=== PATIENT | female | born 1995 | race Caucasian/White ===

== ENCOUNTER 2019-04-30 19:11 | Inpatient (IN) ==
[2019-04-30] MEDS ORDERED: *HR* LORazepam 2 MG/ML VIAL IM PRN (21:43)
[2019-04-30] MEDS ORDERED: Haloperidol Lactate 5 MG/ML VIAL IM PRN (21:43)
[2019-04-30] MEDS ORDERED: *HR* LORazepam 1 MG TABLET PO PRN (21:43)
[2019-04-30] MEDS ORDERED: Acetaminophen 325 MG TABLET PO PRN (21:43)
[2019-04-30] MEDS ORDERED: haloperidoL 5 MG TABLET PO PRN (21:43)
[2019-04-30] MEDS ORDERED: MOM Conc 10 ML UD.LIQ PO PRN (21:43)
[2019-04-30] MEDS ORDERED: Mag Hydrox/Al Hydrox/Simeth 30 ML UDC PO PRN (21:43)
[2019-04-30] MEDS: hydrOXYzine pamoate 25 MG CAPSULE PO PRN (23:23)
[2019-04-30] MEDS: traZODone 50 MG TABLET PO PRN (23:24)
[2019-05-01] MEDS: BuPROPion XL (24 HR) 150 MG TABLET PO SCH (11:22)
[2019-05-01] MEDS: hydrOXYzine pamoate 25 MG CAPSULE PO PRN (20:42)
[2019-05-01] MEDS: traZODone 50 MG TABLET PO PRN (20:43)
[2019-05-01] MEDS ORDERED: Venlafaxine XR (24 HR) 75 MG CAP.ER.24H PO SCH (21:00)
[2019-05-01] MEDS ORDERED: ARIPiprazole 10 MG TABLET PO SCH (21:00)
[2019-05-02] MEDS: BuPROPion XL (24 HR) 150 MG TABLET PO SCH (08:30)
[2019-05-02 09:38] VITALS: BP 126/79
== END 2019-05-02 11:10 | disposition home or self-care (01) | DRG 885 ==
LOC: EMEROOARM 19:11 → 1ANU 21:39
PROVIDERS: ADMIT Psychiatry & Neurology Psychiatry; ATTEND Psychiatry & Neurology Psychiatry

== ENCOUNTER 2021-06-10 15:45 | Inpatient (IN) ==
[2021-06-10 16:31] LABS: Basophils # 0.1 K/mcL (0.0-0.2); Basophils % 0.9 %; Eosinophils # 0.3 K/mcL (0.0-0.6); Eosinophils % 3.1 %; Hematocrit 43.3 % (35.3-44.9); Immature Granulocytes % 0.4 % (0-4); Lymphocytes # 3.2 K/mcL (0.6-4.6); Lymphocytes % 37.5 %; Mean Corpuscular HGB Conc 34.9 g/dL (31.6-35.5); Mean Corpuscular Volume 85.9 fL (83.0-100.0); Mean Platelet Volume 10.1 fL (9.4-12.4); Monocytes # 0.6 K/mcL (0.0-1.3); Monocytes % 7.4 %; Neutrophils # 4.3 K/mcL (1.6-8.9); Platelet Count 282 K/mcL (140-400); Red Blood Count 5.04 M/mcL (3.82-4.97); Red Cell Distribution Width 12.3 % (11.5-14.5); Segmented Neutrophils % 50.7 %; White Blood Count 8.5 K/mcL (4.3-11.1)
[2021-06-10 16:32] LABS: Hemoglobin 15.1 g/dL (11.5-15.4)
[2021-06-10 16:39] LABS: Amphetamine Screen,Urine Negative ng/mL (Cutoff=1000); Barbiturate Screen,Urine Negative ng/mL (Cutoff=200); Benzodiazepines Screen,Urine Negative ng/mL (Cutoff=200); Cannabinoid Screen,Urine Negative ng/mL (Cutoff = 50); Cocaine Screen,Urine Negative ng/mL (Cutoff= 300); Opiate Screen,Urine Negative ng/mL (Cutoff=300); Phencyclidine Screen,Urine Negative ng/mL (Cutoff=25)
[2021-06-10 16:39] LABS: Estimated Average Glucose 103 mg/dl; Hemoglobin A1C 5.2 %
[2021-06-10 16:51] LABS: Acetaminophen < 10 mcg/mL (10-20); BUN/Creatinine Ratio 8 (6-26); Blood Urea Nitrogen 7 mg/dL (6-20); Calcium 9.3 mg/dL (8.6-10.3); Carbon Dioxide 21 mEq/L (23-29); Chloride 105 mEq/L (98-107); Chol/HDL Ratio 6.3 (0-4.9); Cholesterol 252 mg/dL (< 200); Ethanol < 10 mg/dL (Less than 10); Glucose 115 mg/dL (70-105); HDL Cholesterol 40 mg/dL (40-59); Osmolality,Calculated 283 (280-300); Potassium 3.5 mEq/L (3.5-5.1); Salicylate < 2.5 mg/dL (15.0-30.0); Sodium 137 mEq/L (136-145); Triglycerides 704 mg/dL (< 150); eGFR For African Americans > 60 (> 60); eGFR For Non-African Americans > 60 (> 60)
[2021-06-10 17:05] LABS: Bacteria,Urine Few per hpf (None-Few); Bilirubin,Urine Negative (Negative); Blood,Urine Negative (Negative); Clarity,Urine Clear (Clear); Color,Urine Light-Yellow (Yellow); Glucose,Urine (UA) Normal (Normal); Ketones,Urine Negative (Negative); Leukocyte Esterase,Urine Large (Negative); Mucus,Urine Few per lpf (None-Few); Nitrite,Urine Negative (Negative); Protein,Urine Trace mg/dL (Neg-Trace); RBC,Urine 0-3 per hpf (0-3); Specific Gravity,Urine 1.022 (1.010-1.025); Squamous Epithelial Cell,Urine Few per hpf (None-Few); Urobilinogen,Urine Normal (Normal)
[2021-06-10 18:56] LABS: Influenza A PCR Negative (Negative); Influenza B PCR Negative (Negative); Resp. Syncytial Virus PCR Negative (Negative)
[2021-06-10 19:01] LABS: SARS-CoV-2 by PCR (In House) Negative (Negative)
[2021-06-10] MEDS ORDERED: traZODone 50 MG TABLET PO PRN (19:03)
[2021-06-10] MEDS ORDERED: Acetaminophen 325 MG TABLET PO PRN (19:03)
[2021-06-10] MEDS ORDERED: *HR* LORazepam 1 MG TABLET PO PRN (19:03)
[2021-06-10] MEDS ORDERED: *HR* LORazepam 2 MG/ML VIAL IM PRN (19:03)
[2021-06-10] MEDS ORDERED: haloperidoL 5 MG TABLET PO PRN (19:03)
[2021-06-10] MEDS ORDERED: Ibuprofen 400 MG TABLET PO PRN (19:03)
[2021-06-10] MEDS ORDERED: Haloperidol Lactate 5 MG/ML VIAL IM PRN (19:03)
[2021-06-10] MEDS: hydrOXYzine pamoate 25 MG CAPSULE PO PRN (21:50)
[2021-06-11] MEDS ORDERED: Mag Hydrox/Al Hydrox/Simeth 30 ML UDC PO PRN (08:21)
[2021-06-11] MEDS ORDERED: MOM Conc 10 ML UD.LIQ PO PRN (08:21)
[2021-06-11] MEDS: ARIPiprazole 5 MG TABLET PO SCH (10:28)
[2021-06-11] MEDS: BuPROPion XL (24 HR) 150 MG TABLET PO SCH (10:28)
[2021-06-11] MEDS: hydrOXYzine pamoate 25 MG CAPSULE PO PRN (20:26)
[2021-06-12] MEDS: BuPROPion XL (24 HR) 150 MG TABLET PO SCH (08:52)
[2021-06-12] MEDS: ARIPiprazole 5 MG TABLET PO SCH (08:57)
[2021-06-12 10:13] VITALS: BP 132/93; PULSE 101; TEMP 97.6; O2SAT 96
== END 2021-06-12 16:10 | disposition home or self-care (01) | DRG 885 ==
LOC: EMEROOARM 15:45 → 1ANU 19:39
PROVIDERS: ADMIT Psychiatry & Neurology Psychiatry; ATTEND Psychiatry & Neurology Psychiatry